=== PATIENT | female | born 1995 | race Caucasian/White ===

== ENCOUNTER 2017-02-17 14:04 | Emergency (ER) | payer BC ==
[~2017-02-17] VITALS: Ht 175.3 cm; Wt 49.7 kg
[2017-02-17 14:12] VITALS: TEMP 36.6; Ht 175.3 cm; Wt 49.7 kg
[2017-02-17] MEDS ORDERED: PROCHLORPERAZINE 5 MG/ML 2 ML VIAL IV STA (15:41)
[2017-02-17] MEDS ORDERED: KETOROLAC TROMETHAMINE 15 MG/ML VIAL IV STA (15:41)
[2017-02-17] MEDS ORDERED: SODIUM CHLORIDE 0.9% 1000ML 1,000 ML IV STA (15:41)
[2017-02-17] MEDS ORDERED: DiphenhydrAMINE HCL 50 MG/ML VIAL IV STA (15:41)
[2017-02-17] MEDS ORDERED: IBUP-103 PO (15:53)
[2017-02-17] MEDS ORDERED: FERR142T PO (15:53)
[2017-02-17] MEDS ORDERED: HRBLS PO ×2 (15:53)
[2017-02-17] MEDS ORDERED: HYDR5TAB57 PO (15:53)
[2017-02-17] MEDS ORDERED: KETOROLAC TROMETHAMINE 30 MG/ML VIAL ONE (15:57)
[2017-02-17 16:09] LABS: BASO % 0.4 %; BASO ABS # 0.04 K/uL (0-0.2); COMPLETE YES; EOS % 0.1 %; HEMATOCRIT 43.2 % (37-47); IG% 0.2 %; LYMPH % 13.1 %; LYMPH ABS # 1.37 K/uL (1.2-3.4); MEAN CELL VOLUME 91.5 fL (80-100); MEAN CORPUSCULAR HEMOGLOBIN 29.9 pg (25-34); MEAN CORPUSCULAR HGB CONC 32.6 g/dl (32-36); NEUT % 83.2 %; PLATELET COUNT 268 K/uL (130-400); RED BLOOD COUNT 4.72 M/uL (4.2-5.4); WHITE BLOOD COUNT 10.45 K/uL (4.8-10.8)
[2017-02-17 16:26] LABS: BUN/CREATININE RATIO 20.6 (10-20); CALCIUM 9.1 mg/dl (8.5-10.1); CREATININE 0.65 mg/dl (0.60-1.20); POTASSIUM 3.9 mmol/L (3.5-5.1)
[2017-02-17 16:30] LABS: ALB/GLOB RATIO 1.2 (0.9-2)
[2017-02-17 16:34] LABS: PREG INTERNAL NEGATIVE QC NEG CLEAR BACKGROUND; PREG INTERNAL POSITIVE QC POS CONTROL LINE
--- NOTE | 2017-02-17 17:05 | EMERGENCY ROOM VISIT NOTE ---
History First contact with patient: 15:23 Chief Complaint: HEADACHE Stated Complaint: HUMPHRIES,SHAKING,NAUSEA,TINGLING IN LIMBS,LIGHT HEADED History of Present Illness The patient is a 21 year old female who presents to the Emergency Room with complaints of headache for the past 4-5 days. The patient states she has had intermittent headaches for the past 5 days. She has had some nausea, but no vomiting. She reports that she has felt shaky and has had tingling in her hands and feet. The patient states that the headache has been constant and the other symptoms have been intermittent. She rates the discomfort a 5/10. It is not the worst headache of her life. The patient has had issues with headaches in the past. She states that 2 years ago, she was evaluated for similar headaches and had an iron deficiency at this time. She states that her hemoglobin was normal, but her iron was low. She states that since these headaches about the same, she started taking [id number] iron supplements a few days ago. She has not tried any other medications at home. She has seen a neurologist in the past for her headaches and has had imaging which was negative. She states this feels like headaches she has had the past. She denies any numbness, weakness, blurred vision, slurred speech, recent illness, fevers or neck pain/stiffness. She denies chest pain or shortness of breath. Review of Systems A complete 10 point review of systems was reviewed with the patient with pertinent positives and negatives as per history of present illness. All else were negative. Current/Historical Medications Scheduled Ferrous Sulfate (Slow Fe), 1 TAB PO DAILY Herbals (Herbals), 1 PO BID Herbals (Herbals), 1 TAB PO DAILY Herbals (Herbals), 1 TABS PO DAILY Hydrocortisone (Cortef), 5 MG PO BID Scheduled PRN Ibuprofen Tab (Advil), 400 MG PO UD PRN for Headache Physical Exam Vital Signs Date Time Temp Pulse Resp B/P (MAP) Pulse Ox O2 Delivery O2 Flow Rate FiO2 02/17/17 17:09 110 16 105/64 99 02/17/17 16:06 95 16 112/82 99 Room Air 02/17/17 14:12 36.6 123 18 101/75 98 Physical Exam VITALS: Vitals are noted on the nurse's note and reviewed by myself. Vital signs stable. GENERAL: This is a 21-year-old female, in no acute distress, nondiaphoretic, well-developed well-nourished. SKIN: The skin was without rashes. HEAD: Normocephalic atraumatic. EARS: External auditory canals clear, tympanic membranes pearly quigley without erythema or effusion bilaterally. EYES: Pupils equal round and reactive to light and accommodation. Conjunctivae without injection, sclerae without icterus. Extraocular movements intact. MOUTH: Mucous membranes moist. Tonsils are not enlarged. Pharynx without erythema or exudate. Uvula midline. Airway patent. Tongue does not deviate. NECK: Supple without nuchal rigidity. No lymphadenopathy. No meningismus. HEART: Regular rate and rhythm without murmurs gallops or rubs. LUNGS: Clear to auscultation bilaterally without wheezes, rales or rhonchi. ABDOMEN: Soft, nontender to palpation. MUSCULOSKELETAL: Full range of motion throughout. Strength 5/5 throughout. NEURO: Patient was alert and oriented to person place and time. Normal sensation to light and sharp touch. Normal finger to nose testing. Normal rapid alternating movements. Negative Romberg and pronator drift. No focal neurological deficits. Medical Decision & Procedures Laboratory Results 02/17/17 15:55 Red Blood Count 4.72, Mean Corpuscular Volume 91.5, Mean Corpuscular Hemoglobin 29.9, Mean Corpuscular Hemoglobin Concent 32.6, Mean Platelet Volume 10.0, Neutrophils (%) (Auto) 83.2, Lymphocytes (%) (Auto) 13.1, Monocytes (%) (Auto) 3.0, Eosinophils (%) (Auto) 0.1, Basophils (%) (Auto) 0.4, Neutrophils # (Auto) 8.70, Lymphocytes # (Auto) 1.37, Monocytes # (Auto) 0.31, Eosinophils # (Auto) 0.01, Basophils # (Auto) 0.04 02/17/17 15:55 Test 02/17/17 15:55 White Blood Count 10.45 K/uL (4.8-10.8) Red Blood Count 4.72 M/uL (4.2-5.4) Hemoglobin 14.1 g/dL (12.0-16.0) Hematocrit 43.2 % (37-47) Mean Corpuscular Volume 91.5 fL (80-100) Mean Corpuscular Hemoglobin 29.9 pg (25-34) Mean Corpuscular Hemoglobin Concent 32.6 g/dl (32-36) Platelet Count 268 K/uL (130-400) Mean Platelet Volume 10.0 fL (7.4-10.4) Neutrophils (%) (Auto) 83.2 % Lymphocytes (%) (Auto) 13.1 % Monocytes (%) (Auto) 3.0 % Eosinophils (%) (Auto) 0.1 % Basophils (%) (Auto) 0.4 % Neutrophils # (Auto) 8.70 K/uL (1.4-6.5) Lymphocytes # (Auto) 1.37 K/uL (1.2-3.4) Monocytes # (Auto) 0.31 K/uL (0.11-0.59) Eosinophils # (Auto) 0.01 K/uL (0-0.5) Basophils # (Auto) 0.04 K/uL (0-0.2) RDW Standard Deviation 41.7 fL (36.4-46.3) RDW Coefficient of Variation 12.4 % (11.5-14.5) Immature Granulocyte % (Auto) 0.2 % Immature Granulocyte # (Auto) 0.02 K/uL (0.00-0.02) Anion Gap 14.0 mmol/L (3-11) Est Creatinine Clear Calc Drug Dose 109.2 ml/min Estimated GFR () 149.2 Estimated GFR (Non- 128.7 BUN/Creatinine Ratio 20.6 (10-20) Calcium Level 9.1 mg/dl (8.5-10.1) Iron Level 77 mcg/dl (35-150) Total Iron Binding Capacity 405 mcg/dl (250-450) Transferrin 314 mg/dl (200-360) Transferrin % Saturation 18 % (15-50) Total Bilirubin 0.5 mg/dl (0.2-1) Aspartate Amino Transf (AST/SGOT) 14 U/L (15-37) Alanine Aminotransferase (ALT/SGPT) 19 U/L (12-78) Alkaline Phosphatase 63 U/L (45-117) Total Protein 7.9 gm/dl (6.4-8.2) Albumin 4.3 gm/dl (3.4-5.0) Globulin 3.6 gm/dl (2.5-4.0) Albumin/Globulin Ratio 1.2 (0.9-2) Human Chorionic Gonadotropin, Qual NEG (NEG) Medications Administered Medications (Trade) Dose Ordered Sig/Jennifer Route Start Time Stop Time Status Last Admin Dose Admin Sodium Chloride 1,000 ml @ 999 mls/hr Q1H1M STAT IV 02/17/17 15:41 02/17/17 16:41 DC 02/17/17 16:00 999 MLS/HR Prochlorperazine Edisylate (Compazine Inj) 5 mg NOW STAT IV 02/17/17 15:41 02/17/17 15:45 DC 02/17/17 16:00 5 MG Diphenhydramine HCl (Benadryl Inj) 12.5 mg NOW STAT IV 02/17/17 15:41 02/17/17 15:45 DC 02/17/17 16:00 12.5 MG Ketorolac Tromethamine (Toradol Inj) 30 mg STK-MED ONCE .ROUTE 02/17/17 15:57 02/17/17 15:58 DC 02/17/17 16:01 15 MG ED Course The patient was evaluated as above. Labs were drawn and IV access was obtained. Patient was medicated with 1 L normal saline solution, Compazine, Benadryl and Toradol. Patient was reevaluated and findings were discussed. The patient states that her headache has improved after the above treatment. Discharge instructions were reviewed with the patient. The patient verbalized understanding of my assessment and treatment plan and was discharged home in good condition. Medical Decision The differential diagnosis includes acute intracranial bleed, meningitis, encephalitis, mass or mass effect, sinusitis, infection, tumor, headache, temporal arteritis, carbon monoxide exposure, electrolyte abnormality, iron deficiency, and migraine. The patient is a 21-year-old female who presents today complaining of headaches. The patient has been worked up for headaches in the past and has seen neurology at home previously. She states these headaches are similar to previous. Her neuro exam is unremarkable. Labs revealed no leukocytosis, anemia or concerning electrolyte abnormalities. Glucose slightly low at 67. Iron studies were performed and were normal. The patient was encouraged to continue her iron supplementation, as this has helped her in the past. She was instructed to follow-up with her neurologist and primary care provider. She may also follow-up with [facility] locally, as she has recently moved here for the school year. She felt better after treatment with Toradol, Compazine and Benadryl. She was instructed to try [id number] medications at home if her headache returns. Based on the patient's presentation and work up, I feel the patient is stable for outpatient treatment. The patient was educated to return to the emergency department for any worsening of their current condition or new/concerning symptoms. She will follow up with her PCP and neurologist. Medication Reconcilliation Current Medication List: was personally reviewed by me Blood Pressure Screening Patient's blood pressure: Normal blood pressure Impression Primary Impression: Headache Departure Information Dispostion Home / Self-Care Condition GOOD Referrals No Doctor, Assigned (PCP) Patient Instructions My [facility] Additional Instructions Follow-up with your neurologist and primary care provider for further evaluation of today's visit. Rest and stay well hydrated. For pain control, you can use the following pfto-det-sceulbi medicines (if >12 yo): - Regular strength (325mg/tab) Tylenol (acetaminophen) 2 tabs every 4-6 hours as needed. Do not exceed 12 tablets in a 24 hour period. Avoid taking more than 4 grams (4000 mg) of Tylenol per day. This includes any other sources of acetaminophen you may take on a regular basis. - Regular strength (200 mg/tab) Advil (ibuprofen) 1-2 tabs every 4-6 hours as needed. Do not exceed a dose of 3200 mg per day. You may also try xoml-heb-wiinudh formulations such as Excedrin migraine for your headaches. I would suggest following up with [facility] within the next 1- 2 weeks to become established. Return to the emergency department with the worst headache of your life, numbness, weakness, severe vomiting, or other new/concerning symptoms.
[2017-02-17 17:09] VITALS: BP 105/64; PULSE 110; O2SAT 99
== END 2017-02-17 17:10 | disposition home or self-care (01) ==
LOC: C.EDB 14:05 → C.EDA 17:10
DX: R51 Headache (principal)